=== PATIENT | male | born 1955 | race Caucasian/White ===

== ENCOUNTER 2024-09-19 09:08 | Day surgery (SDC) | payer MEDICARE, OTHER ==
[~2024-09-19] VITALS: Ht 172.7 cm; Wt 92.6 kg
[~2024-09-19 09:08] MED LIST: ATOR40TA75 PO; METF500T13 PO; TAMS-18 PO
[2024-09-19 10:13] LABS: CALCIUM LEVEL 8.8 MG/DL (8.3-10.6); CARBON DIOXIDE LEVEL 24.0 MMOL/L (20-31); CHLORIDE LEVEL 109.0 MMOL/L (98-107); CREATININE FOR GFR 0.97 MG/DL (0.70-1.30); GLOMERULAR FILTRATION RATE 86.1 (>49); POTASSIUM SERUM 4.3 MMOL/L (3.5-5.1); SODIUM LEVEL 142.0 MMOL/L (136-145)
[2024-09-19] MEDS ORDERED: LIDOCAINE 2% 100 MG/5 ML SDV (FOR ANES.) As Ordered ONE (12:16)
[2024-09-19] MEDS ORDERED: MIDAZOLAM INJ 2 MG/2 ML VIAL As Ordered ONE (12:17)
[2024-09-19] MEDS ORDERED: ONDANSETRON 4MG 2ML VIAL As Ordered ONE (12:36)
[2024-09-19] MEDS ORDERED: dexAMETHasone 4 MG/ML 1 ML VIAL As Ordered ONE (12:36)
[2024-09-19] MEDS ORDERED: ACETAMINOPHEN 1000MG/100ML IV BAG As Ordered ONE (12:38)
[2024-09-19] MEDS: ceFAZolin SOD 2 GM IV ONCE IV ONE (13:12)
[2024-09-19] MEDS ORDERED: ONDANSETRON 4MG 2ML VIAL IV PRN (13:55)
[2024-09-19] MEDS ORDERED: HYDROMORPHONE HCL 0.5 MG/0.5 ML SYRINGE IV PRN (13:55)
[2024-09-19] MEDS ORDERED: LR 1,000 ML IV SCH (13:55)
[2024-09-19] MEDS ORDERED: KETOROLAC 30 MG/ML 1 ML VIAL As Ordered ONE (14:06)
[2024-09-19] MEDS ORDERED: PERC5TAB12 PO (14:27)
[2024-09-19 14:53] VITALS: BP 140/63; TEMP 97.1; O2SAT 98
== END 2024-09-19 15:16 | disposition home or self-care (01) ==
LOC: M SDC 09:08
PROVIDERS: ATTEND Orthopaedic Surgery Hand Surgery
DX: M72.0 Palmar fascial fibromatosis [Dupuytren] (principal); E11.9 Type 2 diabetes mellitus without complications; Z79.84 Long term (current) use of oral hypoglycemic drugs; Z79.899 Other long term (current) drug therapy; Z87.891 Personal history of nicotine dependence; N40.0 Benign prostatic hyperplasia without lower urinary tract symptoms
CPT/HCPCS: 26123; 36415; 80048; 88304; 93005; J0131; J0665; J0690; J1100; J1885; J2250; J2405; J3010